=== PATIENT | female | born 1970 | race Caucasian/White ===

== ENCOUNTER 2017-01-16 13:51 | Outpatient (CLI) | payer SELFPAY | END 2017-01-16 20:05 | disposition home or self-care (01) | LOC: SMA 13:51 | PROVIDERS: ATTEND Physician Assistant Surgical | DX: Z12.31 Encounter for screening mammogram for malignant neoplasm of breast (principal) | CPT/HCPCS: G0202 ==

== ENCOUNTER 2018-01-19 13:12 | Outpatient (CLI) | payer SELFPAY | END 2018-01-19 20:01 | disposition home or self-care (01) | LOC: SMA 13:12 | PROVIDERS: ATTEND Physician Assistant Surgical | DX: Z12.31 Encounter for screening mammogram for malignant neoplasm of breast (principal) | CPT/HCPCS: 77067 ==